=== PATIENT | female | born 1995 | race Caucasian/White ===

== ENCOUNTER 2021-04-16 15:55 | Inpatient (IN) | payer BC ==
[~2021-04-16] VITALS: Ht 170.2 cm; Wt 88.5 kg
[~2021-04-16 15:55] MED LIST: PRENATABS FA T1 EACH PO; VITAMIN B 12 IM
--- NOTE | 2021-04-16 20:41 | NUR ---
1944 COVID swab obtained and taken to lab.
--- NOTE | 2021-04-16 21:30 | PR ---
[facility] [address] [facility] [place], [place] [address] Signed Progress Notes IP Datetime Report Generated by CPN: 04/16/2021 21:30 PROGRESS NOTES: [id number] Impression: Normal Progression of Labor; Reassuring Heart Rate Procedures: Sterile Vag Exam Plan: Continue Present Management; Anticipate Vaginal Delivery Informed Consent Obtain: Vaginal Delivery VITAL SIGNS: [id number] Vital Signs: Reviewed; Within Normal Limits EXAM: [id number] Dilatation: 5.0 Effacement: 95 Station: -2 Contractions: Irregular MEMBRANES: [id number] Comments: Pt seen and examined. Comfortable w/ epidural. No complaints. Progressing well and FHT reassuring. Anticipate FETUS A: [id number] FHR Baseline: 130 Variability: Moderate 6-25bpm Accelerations: 15X15 Decelerations: Variable FHR Category: Category II Presentation: Vertex Comments on Fetus A: No evidence of metabolic acidosis FETUS B: [id number] Signing Physician: Suzy Combs DO Copies: ~ *Electronically Signed* 04/16/212129 SUZY COMBS DO PATIENT NAME: TAM SAHNI PROGRESS NOTE DATE OF : [birth year] PHYSICIAN: SUZY COMBS DO RPT #: [id number] REPORT IS CONFIDENTIAL AND NOT TO BE RELEASED WITHOUT AUTHORIZATION
--- NOTE | 2021-04-16 22:15 | PR ---
[facility] [address] [facility] [place], [place] [address] Signed Progress Notes IP Datetime Report Generated by CPN: 04/16/2021 22:15 PROGRESS NOTES: [id number] Impression: Normal Progression of Labor Procedures: Sterile Vag Exam Plan: Continue Present Management; Anticipate Vaginal Delivery Informed Consent Obtain: Vaginal Delivery VITAL SIGNS: [id number] Vital Signs: Reviewed; Within Normal Limits EXAM: [id number] Dilatation: 6.0 Effacement: 90 Station: -1 Contractions: Irregular MEMBRANES: [id number] Comments: Pt seen and examined. Doing well. Anticipate soon FETUS A: [id number] FHR Baseline: 130 Variability: Moderate 6-25bpm Accelerations: 15X15 Decelerations: Variable FHR Category: Category II Presentation: Vertex Comments on Fetus A: No evidence of metabolic acidosis FETUS B: [id number] Signing Physician: Suzy Combs DO Copies: ~ *Electronically Signed* 04/16/21 0379 SUZY COMBS DO PATIENT NAME: TAM SAHNI PROGRESS NOTE DATE OF : 95 PHYSICIAN: SUZY COMBS DO [facility] #: [id number] REPORT IS CONFIDENTIAL AND NOT TO BE RELEASED WITHOUT AUTHORIZATION
--- NOTE | 2021-04-17 11:49 | PR ---
[facility] [address] [facility] [place] [address] Signed PP Progress Notes Datetime Report Generated by CPN: 04/17/2021 11:48 SUBJECTIVE: [id number] Pain: Within Normal Limits Nausea/Vomiting: Denies Flatus: Yes Vital Signs: [id number] Vital Signs: Reviewed; Within Normal Limits Cardiovascular: Normal Respiratory: Normal Abdomen/Uterus: Normal Lochia: Normal CVA Tenderness: Normal Extremities: Normal Progress: Normal Exam Comments: Fundus firm U-2 nontender IMPRESSION/PLAN/PROCEDURES: [id number] Impression: Normal Progression Plan: Continue Present Management Progress Notes: Pt seen and examined. Doing well. No concerns. . Anticipate d/c home tomorrow Signing Physician: Suzy Combs DO Copies: ~ *Electronically Signed* 04/17/21 1148 SUZY COMBS DO PATIENT NAME: TAM SAHNI PROGRESS NOTE DATE OF : 95 PHYSICIAN: SUZY COMBS DO RPT #: [id number] REPORT IS CONFIDENTIAL AND NOT TO BE RELEASED WITHOUT AUTHORIZATION
--- NOTE | 2021-04-18 07:13 | PR ---
[facility] [address] [facility] [place], [place] [address] Signed PP Progress Notes Datetime Report Generated by CPN: 04/18/2021 07:13 SUBJECTIVE: [id number] Pain: Within Normal Limits Nausea/Vomiting: Denies Flatus: Yes Bowel Movement: No Vital Signs: [id number] Vital Signs: Reviewed; Within Normal Limits EXAM: Ongoing Cardiovascular: Normal Respiratory: Normal Abdomen/Uterus: Normal Lochia: Normal Vulva/Perineum: Not Done Breasts: Not Done CVA Tenderness: Normal Extremities: Normal Incision: Not Applicable Progress: Not Applicable Exam Comments: Fundus firm U-2 nontender IMPRESSION/PLAN/PROCEDURES: [id number] Impression: Normal Progression Plan: Discharge Progress Notes: Pt seen and examined. Doing well. Ambulating, voiding, and tolerating full diet. Pain and lochia minimal. Bottlefeeding. No fevers/chills. Desires d/c home. Unsure for plans for pp contraception, but likely Mirena IUD. All questions answered and d/c instructions reviewed. Signing Physician: Suzy Combs DO Copies: ~ *Electronically Signed* 04/18/21712 SUZY COMBS DO PATIENT NAME: TAM SAHNI PROGRESS NOTE DATE OF : 95 PHYSICIAN: SUYZ COMBS DO RPT #: [id number] REPORT IS CONFIDENTIAL AND NOT TO BE RELEASED WITHOUT AUTHORIZATION
== END 2021-04-18 10:00 | disposition home or self-care (01) | DRG 807 ==
LOC: FBCO 15:55 → FBC 18:45
PROVIDERS: ADMIT Obstetrics & Gynecology; ATTEND Obstetrics & Gynecology
PROC: 10E0XZZ Delivery of Products of Conception, External Approach (ICD-10-PCS; principal; 2021-04-16)
PROC: 10907ZC Drainage of Amniotic Fluid, Therapeutic from Products of Conception, Via Natural or Artificial Opening (ICD-10-PCS; 2021-04-16)
PROC: 3E0R3BZ Introduction of Anesthetic Agent into Spinal Canal, Percutaneous Approach (ICD-10-PCS; 2021-04-16)
PROC: 00HU33Z Insertion of Infusion Device into Spinal Canal, Percutaneous Approach (ICD-10-PCS; 2021-04-16)
DX: O76 Abnormality in fetal heart rate and rhythm complicating labor and delivery (principal); Z37.0 Single live birth; Z3A.39 39 weeks gestation of pregnancy; O43.123 Velamentous insertion of umbilical cord, third trimester
CPT/HCPCS: 01960; 85027; A9270; C9803; G0463; J2590; J7121; U0003

== ENCOUNTER 2022-03-19 05:50 | Day surgery (SDC) | payer BC ==
[~2022-03-19] VITALS: Ht 170.2 cm; Wt 54.5 kg
[~2022-03-19 05:50] MED LIST changes: +FLUOXETINE HCL10 MG PO; +METHYLPHENIDATE72 MG PO
--- NOTE | 2022-03-19 08:18 | NUR ---
PT ALERT, ORIENTED AND SUPPORTED BY HER MOTHER. OTHER VERY SUPPORTIVE, NO C/O OR NEEDS. GAVE ENCOURAGEMENT, HAD PRAYER WITH BOTH. MOTHER WILL RETURN FOR DC. WILL FOLLOW
--- NOTE | 2022-03-19 10:33 | NUR ---
03/19/22 1033 Sanaz Matthews 1023-PT TO PACU IN SF POSITION WITH ORAL AIRWAY IN PLACE. BREATHING EASY AND UNLABORED. SPO2 >95% ON 6 L O2 VIA SIMPLE MASK. PT REACTIVE TO VERBAL AND TACTILE STIMULI. 1024-PT OPENS EYES AND FOLLOWS COMMANDS. ORAL AIRWAY REMOVED. PT ENCOURAGED TO TAKE DEEP BREATHS. RETURN DEMONSTRATION OBSERVED. BREATHING EASY AND UNLABORED. SPO2 >95% ON 6 L O2 VIA SIMPLE MASK. PT DROWSY AND FALLS BACK TO SLEEP WITHOUT RN STIMULI. 1030- SPO2 >95% O2 TITRATED DOWN TO ROOM AIR. PT STATES SHE HAS "SOME PAIN" BUT FALLS BACK TO SLEEP AND IS UNABLE TO RATE HER PAIN. BREATHING EASY AND UNLABORED. PT DENIES NAUSEA.
[2022-03-19] MEDS ORDERED: IBUPROFEN600 MG PO (10:44)
[2022-03-19] MEDS ORDERED: OXYCODON-ACETA1 EAC2 PO (10:44)
[2022-03-19] MEDS ORDERED: OFIRMEV1000 MG/10 IV (10:44)
--- NOTE | 2022-03-19 11:31 | NUR ---
1105-PATIENT BACK TO ROOM FROM PACU ON . RECEIVED REPORT FROM LINO REEDER. PATIENT IS DROWSY. OPENS HER EYES WITH VERBAL STIMULI BUT EASILY FALLS BACK TO SLEEP. RESP EVEN AND UNLABORED. LOWER BP NOTED. RECHECKED BP AT 1109 AND IT WAS 78/40 (53), REPOSITIONED CUFF AND RECHECKED AT 1113 AND BP WAS 75/44 (55). PATIENT STATES SHE FEELS HOT AND DIZZY. INCREASED HER FLUIDS AND LAYED PATIENT FLAT. DRESSING HAS A SMALL AMOUNT OF DRAINAGE AND RATES PAIN 2/10. DENIES NAUSEA. 1115-SCOTT LATHE WINDER IN ROOM TALKING TO PATIENT. LATHE WINDER WOULD LIKE TO KEEP FLUIDS OPEN AND WATCH. 1120-RECHECKED BP - 88/56 (67) HR 51. PATIENT AWAKES TO VERBAL STIMULI AND STATES FEELING A LITTLE BETTER BUT STILL A LITTLE DIZZY. 1130-BOLUS OF 600ML OF FLUID OVER THE LAST 15 MINUTES. BP NOW IS 91/59 (70), HR 54, RESP 16, O2 SAT 100%. PATIENT IS ASLEEP. DECREASED RATE OF IV FLUIDS.
--- NOTE | 2022-03-19 12:05 | NUR ---
EATING APPLESAUCE DRINKING WATER. SITTING UP. STATES FEELS GOOD BP IMPROVED SEE VS. INFORMED SHE NEEDS TO VOID BEFORE SHE CAN GO HOME.
--- NOTE | 2022-03-19 12:36 | NUR ---
1225 requests to get upto br. sat and stood pt at bedside states she feels fine denies dizziness or lightheheadiness . walked into br. mom states i heard noise. went in and pt laying face first on floor with arms at side. said name and touched pt she immediately said what. pale color. states i dont know what happened. pt amb with assist back to bed lying flat. bp 90/57. she states she feels fine. has small cut upper forhead. valente hauser checks wnl. dr ye in to assess and talk with pt. no new orders. iv patent scds on and sat and bp monitor on.
--- NOTE | 2022-03-19 13:05 | NUR ---
PATIENT LAYING IN A SUPINE POSITION. PATIENT IS DROWSY. RESP EVEN AND UNLABORED. PATIENT STATES NOT DIZZY. RATES PAIN 2/10 AT SURGICAL SITE. DENIES HEADACHE. DENIES NAUSEA. DRESSING HAS A SMALL AMOUNT OF DRAINAGE. DECREASED RATE OF FLUID. CALL LIGHT WITHIN REACH. MOM AT BEDSIDE. LUNCH ORDERED. PATIENT HAS WATER AND APPLESAUCE.
--- NOTE | 2022-03-19 13:35 | NUR ---
1332-PATIENT IS LAYING IN BED AWAKE. VSS. DENIES NAUSEA, DIZZINESS, AND BLURY VISION. RATES SURGICAL PAIN 2/10. DENIES HEADACHE. CALL LIGHT WITHIN REACH. MOM AT BEDSIDE. PATIENT TOLERATED LUNCH.
--- NOTE | 2022-03-19 14:05 | NUR ---
1405-PATIENT LAYING IN BED WITH EYES CLOSED. RESP EVEN AND UNLABORED. RATES PAIN 2/10. DENIES HEADACHE AND DIZZINESS. DRESSING HAS A SMALL AMOUNT OF RED DRAINAGE. MOM AT BEDSIDE. CALL LIGHT WITHIN REACH.
--- NOTE | 2022-03-19 15:21 | NUR ---
1435-DR. JACKSON IN ROOM. STATES WHEN PATIENT AND MOM ARE READY TO GO TO DISCHARGE PATIENT. 1445-PATIENT UP TO RESTROOM WITH 2 RN ASSIST. THIS RN STAYED IN ROOM. GAIT STEADY AND TOLERATED WELL. PATIENT VOIDED 200ML OF YELLOW URINE. PATIENT BACK TO BED. DENIES PAIN. PATIENT READY TO GO HOME. 1450-PATIENT SITTING ON SIDE OF BED. PATIENT STATES SHE FEELS HOT AND LIGHTHEADED. PATIENT LAYED DOWN AND LOWERED HOB. BP-82/54 (65). TURNED FLUIDS BACK ON. 1500-BP-94/57 (68), HR-56. PATIENT STATES FEELING BETTER SINCE LAYING DOWN. 1515-BP-95/45 (67), HR-61. PATIENT STATES FEELING BETTER. DENIES DIZZINESS. DENIES PAIN AT THIS TIME. VO PER DR. JACKSON TO START 4TH BAG OF FLUIDS.
--- NOTE | 2022-03-19 15:45 | NUR ---
1545-PATIENT UP TO SIDE OF BED. DENIES DIZZINESS. PATIENT STANDING AND WALKING AROUND ROOM. GAIT STEADY AND TOLERATED WELL. FLUIDS TURNED OFF. 1553-PATIENT BACK TO SITTING AT SIDE OF BED. C/O CHEST TIGHTNESS AND SOB. STATES ONLY WHEN SITTING AND STANDING. VSS. PATIENT LAYED BACK DOWN AND SOB SUBSIDED. 1600-BACK UP TO SIDE OF BED. DENIES DIZZINESS. PATIENT STOOD UP AND STATES SOB LIKE SHE HAS BEEN RUNNING A LOT. VSS. PATIENT BACK TO LAYING DOWN AND FEELS BETTER. 1603-UPDATE GIVEN TO DR. JACKSON. VO GIVEN FOR LABS. DR. JACKSON STATES HE WILL BE BACK SHORTLY TO CHECK ON PATIENT. 1605-PATIENT LAYING IN BED. RESP EVEN AND UNLABORED. RATES PAIN 5/10. DENIES NAUSEA. DENIES SOB AND CHEST TIGHTNESS. DRESSING WITH A SMALL AMOUNT OF DRAINAGE. MOM IN ROOM. CALL LIGHT WITHIN REACH. 1615-PAIN MEDICATION GIVEN PER EMAR. 1620-LAB IN ROOM.
--- NOTE | 2022-03-19 17:26 | NUR ---
1650-PATIENT SITTING LAYING IN BED. RESP EVEN AND UNLABORED. RATES PAIN 4/10. DENIES NAUSEA, DIZZINESS, AND HEADACHE. DRESSING HAS A SMALL AMOUNT OF DRAINAGE. MOM IN ROOM, 1653-PATIENT SITTING AT BEDSIDE. DENIES SOB AND CHEST TIGHTNESS WHEN TAKING DEEP BREATHS AND SITTING UP STRAIGHT. PATIENT THEN TO STANDING POSITION. DENIES SOB AND CHEST TIGHTNESS. VSS. 1700-PATIENT BACK IN BED. 1705-DR. JACKSON UPDATED ON PATIENTS PROGRESS. RENETTA TO PATIENTS ROOM. NO NEW ORDERS GIVEN. PATIENT CAN BE DISCHARGED.
--- NOTE | 2022-03-19 17:32 | NUR ---
1710-PATIENT GETTING DRESSED WITH HER MOM IN THE ROOM HELPING. 1715-PATIENT TO BATHROOM WITH HER MOM AND VOIDED. 1720-DISCHARGE INSTRUCTIONS GIVEN TO PATIENT AND HER MOM. ALL QUESTIONS ANSWERED. RATES PAIN 4/10. BANDAID ON HER FOREHEAD HAS A SMALL AMOUNT OF DRAINAGE, NO SWELLING NOTED. SMALL AMOUNT OF DRAINAGE ON SURGICAL DRESSING. PATIENT AMBULATES TO WHEELCHAIR, GAIT STEADY AND TOLERATED WELL. RIDE PROVIDED TO FRONT OF HOSPITAL WHERE HER MOTHER WAS WAITING.
--- NOTE | 2022-03-21 14:44 | OR ---
[facility] [address] [place], [place] [address] Signed DATE OF OPERATION: 03/19/2022 SURGEON: Tova Jackson MD PREOPERATIVE DIAGNOSIS: Left inguinal hernia. POSTOPERATIVE DIAGNOSIS: Left direct inguinal hernia. PROCEDURE: Repair of left indirect inguinal hernia with excision of sac and Bassini repair of floor (no implant or mesh). ANESTHESIOLOGIST: Tova Villalobos CRNA ANESTHESIA: Local 10 mL of 0.25% Marcaine with epinephrine. INDICATIONS: This 26-year-old white woman is a patient of Dr. Suzy Combs and is referred with findings of left inguinal hernia. The hernia presents as a small lump in the left groin area, which was increased in size somewhat and not particularly painful currently. An ultrasound performed on February 11, 2022, upon referral from Dr. Combs, which had shown herniation of fat within the hernia sac. The patient has undergone for childbirth. She is noted to have celiac disease since high school. She is admitted at this time to undergo repair of the left inguinal hernia, possibly to include implantation of Prolene mesh depending on clinical findings. The risks of bleeding, infection, recurrent hernia, and other unforeseen complications were reviewed in detail with her. She understands and wished to proceed. FINDINGS: An indirect hernia sac was noted. The floor itself was in reasonably good condition. Implantation of mesh appeared to be an inappropriate in this situation and on that basis, a two-layer Bassini repair was undertaken after excision and ligation of the sac. There were no complications. DESCRIPTION OF PROCEDURE: The patient was brought to the operating room, given a general LMA type anesthetic. Electronically Signed By: TOVA JACKSON MD 03/21/22 1444 PATIENT NAME: TAM SAHNI OPERATIVE REPORT DATE OF : 95 REPORT #: [id number] PHYSICIAN: TOVA JACKSON MD PCP: SUZY COMBS DO REPORT IS CONFIDENTIAL AND NOT TO BE RELEASED WITHOUT AUTHORIZATION [facility] [address] [place], [place] [address] Signed Preoperative antibiotic Ancef was given. Sequential compression device stockings used and heparin subcutaneously administered. The lower abdomen was prepared with chlorhexidine solution and draped sterilely. The area of hernia defect was easily palpable. A small incision was made to remain within the bikini line. This was oriented along the skin fibers. Dissection was carried through the subcutaneous tissue and the external oblique identified showing protrusion of the hernia sac through the external ring. The external ring was incised and the external oblique fascia reflected laterally. Using blunt dissection, the hernia sac was freed from the floor, which showed a fused round ligament in association with it. Additionally, there was some fat that had herniated outside the area of the hernia sac itself. Hernia sac was dissected free distally freeing the round ligament entirely. The hernia sac was opened and internal inspection showed no sign of incarcerated viscus. The hernia sac was divided allowing for excision of the sac and closure of the hernia sac with a running 2-0 silk suture. The floor was intact generally speaking. The defect was at the internal ring. Under the circumstances, implantation of Prolene mesh was deemed nettlesome and on that basis, a repair without mesh was deemed most more appropriate. The tendon of the transversus abdominis was secured to the shelving edge of Poupart ligament with interrupted 2-0 silk sutures without encumbrance of other structures such as the round ligament. An additional layer was additionally secured with 0-silk suture. A 10 mL of 0.25% Marcaine with epinephrine was injected locally. Megan layer was reapproximated with interrupted 2-0 Vicryl. The skin closed with a running subcuticular 3-0 Vicryl. Steri-Strips were applied as was an Acticoat dressing. The patient tolerated the procedure well, was extubated without problem and taken to the recovery room in good condition, having suffered no known complications. Sponge, needle, and instrument counts reported as correct x3. MD CATARINA Vang/MODL /[id number] cc: Suzy Combs DO Electronically Signed By: TOVA JACKSON MD 03/21/22 1444 PATIENT NAME: TAM SAHNI OPERATIVE REPORT DATE OF : 95 REPORT #: [id number] PHYSICIAN: TOVA JACKSON MD PCP: SUZY COMBS DO REPORT IS CONFIDENTIAL AND NOT TO BE RELEASED WITHOUT AUTHORIZATION [facility] [address] [place] [place] [address] Signed Copies: SUZY COMBS DO ~ Electronically Signed By: TOVA JACKSON MD 03/21/22 1444 PATIENT NAME: TAM SAHNI OPERATIVE REPORT DATE OF : 95 REPORT #: [id number] PHYSICIAN: TOVA JACKSON MD PCP: SUZY COMBS DO REPORT IS CONFIDENTIAL AND NOT TO BE RELEASED WITHOUT AUTHORIZATION
--- NOTE | 2022-03-22 11:38 | CONS ---
[facility] [address] [place], [place] [address] Signed DATE OF CONSULTATION: 03/19/2022 TIME: 12:30 p.m. ISSUE: Fall in bathroom following left inguinal hernia repair. HISTORY OF PRESENT ILLNESS: This 26-year-old white woman underwent an uneventful left inguinal hernia repair without implantation of mesh in early this morning. She satisfied criteria on PACU to transfer to the day surgery area. She was recuperating and got out of bed to go to the bathroom. Her mother who was in the room at that time heard a sound as if the patient had fallen. She was found by the nurses to have fallen and bumped her anterior forehead. The patient does not remember feeling lightheaded or anything of that sort. Her pressure immediately following the fall was noted to be 70 systolic prior to that 93 systolic and baseline 104 systolic. She fell from a sitting position on the toilet. The patient has no complaints of headache, lightheadedness or dizziness currently. She denies any neck pain. PHYSICAL EXAMINATION: She is alert and oriented. Her mother is in the room. Trachea is midline. She has no tenderness to the posterior neck. She has a slight minimal laceration of the mid central forehead. There is no "goose egg." She is able to move her chin to each shoulder without eliciting any "zingers." Extraocular eye movements are intact. Occlusion is normal. Pupils are equal, round, reactive to light. She moves both upper and lower extremities without problem. The left groin incision appears to be intact without sign of bleeding or hematoma. ASSESSMENT: She had a fall in the bathroom without loss of consciousness, which may have been related to postural hypotension following voiding. We will keep her in day surgery longer and continue to observe. I do not feel there is a strong indication of need for a CT scan or imaging study at this time. If her clinical situation should change in the course that could be modified. Tova Jackson MD Electronically Signed By: TOVA JACKSON MD 03/22/22 1138 PATIENT NAME: TAM SAHNI CONSULTATION DATE OF : [birth year] REPORT #: [id number] PHYSICIAN: TOVA JACKSON MD PCP: SUZY PATEL DO REPORT IS CONFIDENTIAL AND NOT TO BE RELEASED WITHOUT AUTHORIZATION [facility] [address] [facility] [place] [place] [address] Signed CATARINA/SHAHAB /[id number] Copies: ~ Electronically Signed By: TOVA JACKSON MD 03/22/22 1138 PATIENT NAME: TAM SAHNI CONSULTATION DATE OF : [birth year] REPORT #: [id number] PHYSICIAN: TOVA JACKSON MD PCP: SUZY PATEL DO REPORT IS CONFIDENTIAL AND NOT TO BE RELEASED WITHOUT AUTHORIZATION
== END 2022-03-19 17:20 | disposition home or self-care (01) ==
LOC: DS 05:50
PROVIDERS: ATTEND Surgery
PROC: 0YQ60ZZ Repair Left Inguinal Region, Open Approach (ICD-10-PCS; principal; 2022-03-19 06:45)
DX: K40.90 Unilateral inguinal hernia, without obstruction or gangrene, not specified as recurrent (principal); Z80.0 Family history of malignant neoplasm of digestive organs; K90.0 Celiac disease; R07.89 Other chest pain; Z98.890 Other specified postprocedural states; Z91.018 Allergy to other foods
CPT/HCPCS: 36415; 80053; 85025; A9270; J0131; J0690; J1100; J1644; J1885; J2250; J2405; J2704; J2765; J3010; J7121

== ENCOUNTER 2022-03-27 08:40 | Day surgery (SDC) | payer BC ==
[~2022-03-27] VITALS: Ht 170.2 cm; Wt 54.5 kg
[~2022-03-27 08:40] MED LIST changes: +IBUPROFEN600 MG PO; +OFIRMEV1000 MG/10 IV; +OXYCODON-ACETA1 EAC2 PO
[2022-03-27] MEDS ORDERED: FLOXURIDINE500 MG (09:08)
--- NOTE | 2022-03-27 11:18 | NUR ---
03/27/22 1118 Sanaz Matthews 1111-PT TO PACU IN SUPINE POSITION. PT DROWSY BUT DENIES DIZZINESS PAIN AND NAUSEA. PT REPOSITIONS SELF TO LL POSITION. PT ENCOURAGED TO PASS GAS. BREATHING EASY AND UNLABORED. SPO2 >95% ON 3 L O2 VIA NC. 1117-PT REMAINS AWAKE AND ASKING FOR CELL PHONE. BREATHING EASY AND UNLABORED. SPO2 >95% O2 TITRATED DOWN TO ROOM AIR.BREATHING EASY AND UNLABORED. PT ASKING QUESTIONS ABOUT PROCEDURE.
--- NOTE | 2022-03-27 14:04 | OR ---
[facility] [address] [place], [place] [address] Signed DATE OF OPERATION: 03/27/2022 SURGEON: Tova Jackson MD PREOPERATIVE DIAGNOSES: 1. Longstanding celiac disease, constipation predominantly, previously diarrhea. 2. Recent left inguinal hernia repair without mesh. POSTOPERATIVE DIAGNOSIS: Normal-appearing colon and terminal ileum. PROCEDURE: Total colonoscopy to the cecum with intubation of ileum and biopsies. ANESTHESIA: Intravenous sedation, fentanyl 150 mcg and Versed 7 mg. INDICATION: This 26-year-old white woman is a patient of Dr. Suzy Combs. She recently underwent left inguinal hernia by me without implantation of mesh. She is recovering from that well. She is known to have celiac disease since her high school years originally manifesting as diarrhea and more dominantly recently episodic constipation. She has significant family history of colon cancer in a grandmother, a great aunt and a sister who had polyps in her 30s. On the basis of all these factors, colonoscopy has been recommended. The patient understands the risk of bleeding, infection, and perforation related to colonoscopy and wished to proceed. FINDINGS: The prep was excellent. Complete colonoscopy was undertaken to the cecum without question. Intubation of the ileum was accomplished as well. The ileum and all of the colon including the rectum appeared normal. Biopsies were obtained of the ileum, cecum, and rectum. DESCRIPTION OF PROCEDURE: The patient was brought to the endoscopy suite and placed in the lateral decubitus position, given intravenous sedation to the point of slurred speech and nystagmus with full cardiopulmonary monitoring. Digital rectal examination was normal. An Olympus video colonoscope was passed in the rectum and manipulated throughout the colon noting a well prepped bowel. The scope was ultimately advanced to the cecum. Electronically Signed By: TOVA JACKSON MD 03/27/22 1404 PATIENT NAME: TAM SAHNI OPERATIVE REPORT DATE OF : [birth year] REPORT #: [id number] PHYSICIAN: TOVA JACKSON MD PCP: SUZY COMBS DO REPORT IS CONFIDENTIAL AND NOT TO BE RELEASED WITHOUT AUTHORIZATION [facility] [address] [place], [place] [address] Signed Ileocecal valve and appendiceal orifice were normal. Biopsies were taken of the cecum. With various manipulations, the ileum was additionally entered and the mucosa of the ileum appeared normal with normal villi. Biopsies were taken of the ileum. The scope was withdrawn to the cecum which was found to be hemostatic. The scope was then withdrawn and examination throughout showed no sign of abnormality. The rectum was biopsied as well. The scope was removed and the patient was taken to the recovery room in good condition. CONCLUDING DIAGNOSES: 1. Normal-appearing colon and ilium. 2. Long-standing celiac disease, current manifestation constipation. 3. Family history of colon cancer and polyps in younger family members. PLAN: Recommend repeat colonoscopy in 10 years, sooner if symptoms should develop. MD CATARINA Vang/SHAHAB /[id number] cc: Suzy Combs DO Copies: COMBS,SUZY D DO ~ Electronically Signed By: TOVA JACKSON MD 03/27/22 1404 PATIENT NAME: KAITLYNTAM OPERATIVE REPORT DATE OF : [birth year] REPORT #: [id number] PHYSICIAN: TOVA JACKSON MD PCP: SUZY COMBS DO REPORT IS CONFIDENTIAL AND NOT TO BE RELEASED WITHOUT AUTHORIZATION
--- NOTE | 2022-03-30 12:14 | PATH ---
[facility] [address] [place], [place] [address] Signed SPECIMEN(S): A CECUM BIOPSY SPECIMEN(S): B ILEUM BIOPSY SPECIMEN(S): C SIGMOID BIOPSY SPECIMEN(S): D RECTUM BIOPSY SPECIMEN SOURCE: A. CECUM BIOPSY B. ILEUM BIOPSY C. SIGMOID BIOPSY D. RECTUM BIOPSY CLINICAL HISTORY: Celiac disease; family history of colon cancer. Post: Normal colonoscopy. FINAL PATHOLOGIC DIAGNOSIS: A. Cecum biopsy: - Benign colonic mucosa, negative for specific diagnostic abnormality. B. Ileum biopsy: - Benign small bowel-type mucosa, negative for specific diagnostic abnormality. C. Sigmoid biopsy: - Benign colonic mucosa, Negative for specific diagnostic abnormality. D. Rectum, biopsy: - Hyperplastic polyp (two fragments). JVR:[facility]:C2NR MICROSCOPIC EXAMINATION: Histologic sections of all submitted blocks are examined by light microscopy. These findings, together with the gross examination, support the pathologic diagnosis. GROSS DESCRIPTION: Four specimens are received in four containers, labeled "JE." A. The specimen, labeled "JE, cecum biopsy," is received in formalin and consists of three rachel soft tissue fragment(s) that measure 0.1-0.2 cm in greatest dimension. The specimen is entirely submitted in cassette (A1). B. The specimen, labeled "JE, ileum biopsy," is received in formalin and consists of two rachel soft tissue fragment(s) that measure 0.1-0.2 cm in greatest dimension. The specimen is entirely submitted in cassette (B1). PATIENT NAME: TAM SAHNI PATHOLOGY DATE OF : 89 REPORT #: [id number] PHYSICIAN: ANN CALABRESE PCP: SUZY PATEL DO REPORT IS CONFIDENTIAL AND NOT TO BE RELEASED WITHOUT AUTHORIZATION [facility] [address] [place], [place] [address] Signed C. The specimen, labeled "JE, sigmoid colon biopsy," is received in formalin and consists of two rachel soft tissue fragment(s) that measure 0.1-0.2 cm in greatest dimension. The specimen is entirely submitted in cassette (C1). D. The specimen, labeled "JE, rectum biopsy," is received in formalin and consists of two rachel soft tissue fragment(s) that measure 0.1 cm in greatest dimension. The specimen is entirely submitted in cassette (D1). JS (under the direct supervision of a pathologist) The Gross Description was prepared using a voice recognition system. The report was reviewed for accuracy; however, sound-alike word errors, addition and/or deletions may occur. If there is any question about this report, please contact Client Services. PERFORMING LABORATORY: The technical component was performed by [facility], [address] [place] [id number] (CLIA# [id number]). Professional interpretation was performed by [facility], [address] [place] [id number] (CLIA#: [id number]). Diagnostician: Malcolm Pérez MD Pathologist Electronically Signed 03/30/2022 Copies: ~ PATIENT NAME: TAM SAHNI PATHOLOGY DATE OF : [birth year] REPORT #: [id number] PHYSICIAN: ANN PATHOLOGY PCP: SUZY PATEL DO REPORT IS CONFIDENTIAL AND NOT TO BE RELEASED WITHOUT AUTHORIZATION
== END 2022-03-27 12:00 | disposition home or self-care (01) ==
LOC: OPS 08:40 → DS 08:44 → OPS 10:50 → DS 11:00 → OPS 12:00 → DS 13:05 → OPS 14:05
PROVIDERS: ATTEND Surgery
PROC: 0DBN8ZX Excision of Sigmoid Colon, Via Natural or Artificial Opening Endoscopic, Diagnostic (ICD-10-PCS; 2022-03-27)
PROC: 0DBP8ZX Excision of Rectum, Via Natural or Artificial Opening Endoscopic, Diagnostic (ICD-10-PCS; 2022-03-27)
PROC: 0DBB8ZX Excision of Ileum, Via Natural or Artificial Opening Endoscopic, Diagnostic (ICD-10-PCS; 2022-03-27)
PROC: 0DBH8ZX Excision of Cecum, Via Natural or Artificial Opening Endoscopic, Diagnostic (ICD-10-PCS; principal; 2022-03-27 10:50)
DX: K62.1 Rectal polyp (principal); K90.0 Celiac disease; K40.90 Unilateral inguinal hernia, without obstruction or gangrene, not specified as recurrent; Z80.0 Family history of malignant neoplasm of digestive organs; F90.9 Attention-deficit hyperactivity disorder, unspecified type
CPT/HCPCS: 84703; 99153; G0500; J2250; J3010; J7121